=== PATIENT | female | born 2000 | race Caucasian/White ===

== ENCOUNTER 2019-01-10 18:42 | Emergency (ER) | payer MEDICAID, OTHER ==
[~2019-01-10] VITALS: Ht 170.2 cm; Wt 68.5 kg
[2019-01-10 19:21] VITALS: BP 117/75
== END 2019-01-11 00:03 | disposition home or self-care (01) ==
LOC: ER 19:00
DX: J03.80 Acute tonsillitis due to other specified organisms (principal); B96.89 Other specified bacterial agents as the cause of diseases classified elsewhere; Z88.1 Allergy status to other antibiotic agents